=== PATIENT | female | born 1995 | race Caucasian/White ===

== ENCOUNTER 2024-11-15 10:54 | Outpatient (CLI) | payer OTHER, SELFPAY ==
[2024-11-15 11:00] VITALS: BP 119/77; PULSE 80; RESP 20; TEMP 36.6; O2SAT 99
[2024-11-15 11:22] VITALS: O2SAT 99
[2024-11-15 11:24] VITALS: BP 131/81; PULSE 74; PULSE 86; RESP 25; O2SAT 100
[2024-11-15 11:30] VITALS: PULSE 92; RESP 26; O2SAT 100
[2024-11-15 11:31] VITALS: BP 123/72; PULSE 89; PULSE 91; RESP 18; O2SAT 100
--- NOTE | 2024-11-15 11:38 | DI.RAD_ITS ---
Exam(s) XR PAIN CLINIC LUMBAR SP 2V EXAM: XR PAIN CLINIC LUMBAR SP 2V CLINICAL HISTORY: DX: Lumbar Radiculopathy TECHNIQUE: 2D and realtime digital imaging was performed. CONTRAST MATERIAL: Refer to procedure report. COMPARISON: No exams were available for comparison FINDINGS: Fluoroscopy was provided for Dr. Hernández during the performance of a transforaminal epidural steroid in [facility]. Please refer to the procedure report for complete details. Ka,r=11.1 mGy IMPRESSION: RADIATION DOSE DELIVERED: 0.0 0.0 0
--- NOTE | 2024-11-15 11:41 | PDOC.PAIN ---
Date of service: 11/15/24 Time of Service: 11:41 Pain Managment Procedure Note Procedure Note Procedure Note: LUMBAR / SACRAL TRANSFORAMINAL INJECTION Marimar Charlton has been referred to [facility] for a transforaminal nerve root block and steroid injection. COMMENTS: I previously evaluated her in the office and her symptoms are unchanged. Pre-procedure pain VAS: 7/10 Diagnosis: Lumbar radiculopathy M54.16 Patient was interviewed and the medical record reviewed. There were no medical, pharmacologic, radiographic or other structural contraindications to attempting fluoroscopically guided transforaminal nerve root block and epidural steroid injection. Risks and expected side effects as well as potential benefit of the procedure were reviewed and voiced concerns addressed. The printed consent form was signed and witnessed. Standard time-out procedure was performed. Patient was placed in the prone position on the fluoroscopy table and automated blood pressure cuff and pulse oximeter applied. Fluoroscopy was utilized to identify the right L5 neural foramen between L5 and S1. A skin bill was made for the needle insertion site. A Chlorhexadine prep was carried out, and sterile drapes were applied. Local anesthesia was achieved in the skin and subcutaneous tissues. A 22 gauge 5 spinal needle was then inserted, advanced with fluoroscopic guidance into the neural foramen, confirmed on the lateral view. After negative aspiration, 2 ml of Omnipaque 240 was injected confirming position in A/P and lateral views. This showed a good spread of dye transforaminally into the epidural space. There was no vascular update with contrast injection under continuous fluoroscopy and digital substraction. 15 mg of Dexamethasone was injected, followed by 0.5 ml of 1% Xylocaine flush for the nerve root block, as well. There was no unusual discomfort expressed.The needle was withdrawn. The patient tolerated the procedure well. A Band-Aid was applied. Vital signs were stable throughout the procedure and were as recorded in nursing records. If given, dosages of intravenous drugs for anxiolysis and analgesia were documented in nursing records. Follow up plans and appointments were discussed. Post procedure instruction was given as documented in nursing records and patient was discharged in the care of an identified vacuum truck driver. COMMENTS: Post-procedure VAS pain level was 2/10. I did give her the Treat Your Own Back book by Sid Marcos and strongly encouraged her to get back into home exercises after two days. Carlos Eduardo Hernández DO, MPH [employer] [facility] CC: None
[2024-11-15] MEDS: Nerve Block Tray 1 EACH MC (11:44)
[2024-11-15] MEDS: Omnipaque 240 MG/ML 50 ML BTL IJ (11:44)
[2024-11-15] MEDS: Dexamethasone Sod. Phos./Pres-Free 10 MG/ML VIAL IJ (11:45)
== END 2024-11-15 10:55 | disposition home or self-care (01) ==
LOC: PC 10:54
PROVIDERS: Visit Provider Preventive Medicine Occupational Medicine
DX: M54.16 Radiculopathy, lumbar region (principal)
CPT/HCPCS: 64483; 72100; J1100; Q9967